=== PATIENT | male | born 1995 | race Caucasian/White ===

== ENCOUNTER 2022-08-12 23:46 | Emergency (ER) | payer BC ==
[2022-08-13 08:03] VITALS: RESP 19; TEMP 97.9
[2022-08-13] MEDS ORDERED: SULFAMETH-TMP DS STARTER PACK 2 TAB BTL PO STA (08:39)
--- NOTE | 2022-08-13 08:41 | ED ---
Skin/Abscess/FB HPI - General Chief complaint: Skin/Abscess/Foreign Body Stated complaint: LT thigh cyst Time Seen by Provider: 08/13/22 08:25 Source: patient, RN notes reviewed Mode of arrival: ambulatory Limitations: no limitations - History of Present Illness Initial comments: This is a 27-year-old male who presents to the emergency department for a cyst on the left inner thigh. States that he first noticed this 2-3 days ago. He feels like it is getting progressively bigger. Unsure if he has noticed any drainage from this or not. It is tender when he presses on it, however he states that his pain is tolerable and he is able to walk. He has had cysts in the past, which often resolve with antibiotics. Denies any fevers, chills, sore throat, cough, dyspnea, chest pain, palpitations, abdominal pain, nausea, vomiting, diarrhea, back pain, or headaches. MD complaint: abscess/boil Onset/Timin -: days(s) Tetanus Up to Date: yes Location: [facility] - Related Data Previous Rx's Medication Instructions Recorded Sulfamethox-Tmp 800-160Mg [Bactrim 1 tab PO Q12HR 10 Days #20 tab 08/13/22 DS 800-160 mg] Allergies Allergy/AdvReac Type Severity Reaction Status Date / Time No Known Allergies Allergy Verified 08/13/22 00:55 Review of Systems ROS Statement: Those systems with pertinent positive or pertinent negative responses have been documented in the HPI. ROS Other: All systems not noted in ROS Statement are negative. Past Medical History Past Medical History: No Reported History History of Any Multi-Drug Resistant Organisms: None Reported Past Surgical History: No Surgical Hx Reported Past Psychological History: No Psychological Hx Reported Smoking Status: Never smoker Past Alcohol Use History: Rare Past Drug Use History: Marijuana General Exam Limitations: no limitations General appearance: alert, in no apparent distress Head exam: Present: atraumatic, normocephalic, normal inspection Respiratory exam: Present: normal lung sounds bilaterally. Absent: respiratory distress, wheezes, rales, rhonchi, stridor Cardiovascular Exam: Present: regular rate, normal rhythm, normal heart sounds. Absent: systolic murmur, diastolic murmur, rubs, gallop, clicks Neurological exam: Present: alert, oriented X3, CN II-XII intact Psychiatric exam: Present: normal affect, normal mood Skin exam: Present: other (Palpable firm mass in the left inguinal fold with surrounding induration and erythema. Minor tenderness to palpation. No active drainage or punctate lesions.) Course Vital Signs 08/13/22 08/13/22 08/13/22 00:52 08:02 09:00 Temperature 98.4 F 97.9 F 97.9 F Pulse Rate 79 79 Pulse Rate [ 107 H Pulse Oximetery ] Respiratory 16 19 19 Rate Blood Pressure 170/98 170/98 Blood Pressure 157/102 [Left Arm] O2 Sat by Pulse 100 97 97 Oximetry Medical Decision Making - Medical Decision Making This is a 27-year-old male who presents to the emergency department for a cyst to the left upper thigh. Was pt. sent in by a medical professional or institution? @ -No Did you speak to anyone other than the patient for history? @ -No Did you review nursing and triage notes? @ -Agree, accurate with regards to the patient's symptoms. Were old charts reviewed? @ -No Differential Diagnosis? @ -Abscess vs cyst. What testing was considered but not performed? (CT, X-rays, U/S, labs)? Why? @ None What meds were considered but not given? Why? @ -Offered ibuprofen or Tylenol for pain control, however the patient states t hat his pain is manageable at this time. Did you discuss the management of the patient with other professionals? @ -No Did you reconcile home meds? @ -No Was smoking cessation discussed for >3mins.? @ -No Was critical care preformed (if so, how long)? @ -No Were there social determinants of health that impacted care today? How? (Homelessness, low income, unemployed, alcoholism, drug addiction, transportation, low edu. Level, literacy, decrease access to med. care, senior living, rehab)? @ -No Was there de-escalation of care discussed even if they declined? (Discuss DNR or withdrawal of care, Hospice)? @ -No What co-morbidities impacted this encounter? (DM, HTN, Smoking, COPD, CAD, Cancer, CVA, Hep., AIDS, mental health diagnosis, sleep apnea, morbid obesity)? @ -None. Was patient admitted / discharged? @ -Discharged. The abscess does not have any punctate lesions or other areas that would allow for easy drainage. Advised the patient that we can try to drain this here, or he can start with a course of antibiotics. Patient requests to start with a course of antibiotics. Rx for Bactrim provided with dosing instructions reviewed. Advised he apply warm compresses and alternate with ibuprofen and Tylenol as needed for pain relief. Drug Therapy requiring intensive monitoring for toxicity (Heparin, Nitro, Insulin, Cardizem)? @ -None Were any procedures done? @ -None Diagnosis/symptom? @ -Abscess Acute, or Chronic, or Acute on Chronic? @ -Acute Uncomplicated (without systemic symptoms) or Complicated (systemic symptoms)? @ -Uncomplicated Side effects of treatment? @ -Adverse reaction to the Bactrim. Exacerbation, Progression, or Severe Exacerbation] @ -Not applicable Poses a threat to life or bodily function? @ -May impact bodily function if the abscess causes significant pain or difficulty with ambulation based on its location. Return precautions reviewed in depth, the patient is instructed to return to the emergency department with any new, worsening, or concerning symptoms. Patient verbalized understanding. This case was discussed in detail with the attending ED physician. Presentation, findings, and treatment plan discussed in detail as well. Disposition Clinical Impression: Abscess Disposition: HOME SELF-CARE Instructions (If sedation given, give patient instructions): Abscess (ED) Additional Instructions: Return to the emergency department with any new, worsening, or concerning symptoms. Take the antibiotic as prescribed for 10 days. Apply warm compresses. Alternate with ibuprofen and Tylenol as needed for pain relief. Follow up with your primary care provider in 1-2 days. Prescriptions: Sulfamethox-Tmp 800-160Mg [Bactrim DS 800-160 mg] 1 tab PO Q12HR 10 Days #20 tab Is patient prescribed a controlled substance at d/c from ED?: No Referrals: None,Stated [REFERRING] - 1-2 days
[2022-08-13 09:02] VITALS: BP 170/98; PULSE 79
== END 2022-08-13 09:01 | disposition home or self-care (01) ==
LOC: EC 23:46
DX: L02.416 Cutaneous abscess of left lower limb (principal); F12.90 Cannabis use, unspecified, uncomplicated
CPT/HCPCS: 99283